=== PATIENT | male | born 1940 | race Caucasian/White ===

== ENCOUNTER 2017-03-07 09:49 | Inpatient (IN) | payer MEDICARE, OTHER ==
[~2017-03-07] VITALS: Ht 167.6 cm; Wt 82.4 kg
[2017-03-07] MEDS ORDERED: DIPHTH/TETANUS/ACEL PERTUSSIS (BOOSTER) 0.5 ML VIAL/PFS IM ONE (09:57)
[2017-03-07] MEDS ORDERED: MORPHINE SULFATE 8 MG/ML INJ ONE (09:57)
[2017-03-07] MEDS ORDERED: ceFAZolin 2 GM PREMIX 50 ML ONE (09:57)
[2017-03-07] MEDS ORDERED: ONDANSETRON HCL 4 MG/2 ML VIAL ONE (09:57)
[2017-03-07] MEDS ORDERED: GENTAMICIN 80 MG PREMIX 100 ML ONE (09:57)
[2017-03-07 10:06] VITALS: O2SAT 100
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
[2017-03-07 10:17] LABS: I-STAT POTASSIUM 4.5 MMOL/L (3.5-4.9)
[2017-03-07 10:19] LABS: AUTOMATED NEUTROPHIL # 4.9 TH/MM3 (1.8-7.7); BASOPHIL % 0.3 % (0.0-2.0); EOSINOPHIL # 0.1 TH/MM3 (0-0.4); EOSINOPHIL % 1.6 % (0.0-4.0); HEMATOCRIT 54.5 % (39.0-51.0); HEMO FLAGS DIFF FINAL; LYMPH % 27.3 % (9.0-44.0); LYMPHOCYTE # 2.1 TH/MM3 (1.0-4.8); MEAN CELL VOLUME 88.1 FL (80.0-100.0); MEAN CORPUSCULAR HEMOGLOBIN 29.6 PG (27.0-34.0); MEAN CORPUSCULAR HGB CONC 33.6 % (32.0-36.0); MONO % 7.4 % (0.0-8.0); NEUT % 63.4 % (16.0-70.0); PLATELET COUNT 156 TH/MM3 (150-450); RED BLOOD COUNT 6.18 MIL/MM3 (4.50-5.90); RED CELL DISTRIBUTION WIDTH 14.1 % (11.6-17.2); WHITE BLOOD COUNT 7.7 TH/MM3 (4.0-11.0)
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
[2017-03-07] MEDS ORDERED: diphenhydrAMINE HCL 50 MG/ML VIAL ONE (10:25)
[2017-03-07 10:26] LABS: APTT (PATIENT) 25.2 SEC (24.3-30.1); PROTHROMBIN TIME - PATIENT 11.4 SEC (9.8-11.6)
[2017-03-07 10:30] VITALS: BP 189/84; PULSE 78; RESP 22; O2SAT 100
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
[2017-03-07] MEDS ORDERED: LACTATED RINGER'S 1000 ML INJ 1,000 ML IV SCH (10:46)
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
[2017-03-07] MEDS ORDERED: ceFAZolin 2 GM PREMIX 50 ML IV STA (10:50)
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
[2017-03-07] MEDS ORDERED: ONDANSETRON HCL 4 MG/2 ML VIAL IV ONE (11:00)
[2017-03-07] MEDS ORDERED: HYDROmorphone HCL PF 1 MG/ML VIAL IVP PRN (11:00)
[2017-03-07] MEDS ORDERED: ONDANSETRON HCL 4 MG/2 ML VIAL IV PRN (11:00)
[2017-03-07] MEDS ORDERED: CHLORHEXIDINE GLUCONATE 2 % 1 PACK (2 CLOTHS) TOP PRN (11:00)
[2017-03-07] MEDS ORDERED: MORPHINE SULFATE 4 MG/ML INJ IV ONE (11:00)
[2017-03-07] MEDS ORDERED: MISCELLANEOUS NURSING INFORMATION XX SCH (11:00)
[2017-03-07] MEDS ORDERED: SODIUM CHLORIDE 0.9% FLUSH 10 ML FLUSH IV FLUSH PRN ×2 (11:00→21:00)
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
[2017-03-07 11:30] VITALS: BP 162/74; PULSE 68; RESP 22; O2SAT 100
[2017-03-07] MEDS ORDERED: IOHEXOL 350 MG/ML 10 ML VIAL (for RAD DIAG) IV ONE (11:33)
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
[2017-03-07 12:30] VITALS: BP 152/73; PULSE 66; RESP 22; O2SAT 100
[2017-03-07] MEDS: HYDROmorphone HCL PF 1 MG/ML VIAL IVP PRN ×2 (12:45→22:26)
[2017-03-07] MEDS ORDERED: NEOSTIGMINE 3 MG/3 ML SYR IV ONE (13:20)
[2017-03-07] MEDS ORDERED: PHENYLEPH/NS 1000 MCG/10 ML SYR IV ONE (13:20)
[2017-03-07] MEDS ORDERED: ONDANSETRON HCL 4 MG/2 ML VIAL IV PUSH ONE (13:20)
[2017-03-07] MEDS ORDERED: LACTATED RINGER'S 1000 ML INJ 1,000 ML IV ONE (13:20)
[2017-03-07] MEDS ORDERED: PROPOFOL 200 MG/20 ML AMP IV ONE (13:20)
[2017-03-07 13:30] VITALS: BP 126/60; PULSE 58; RESP 22; O2SAT 100
[2017-03-07] MEDS ORDERED: FLUT50SP EACH NARE (14:38)
[2017-03-07] MEDS ORDERED: ALAW0.02 EACH EYE (14:38)
[2017-03-07] MEDS ORDERED: SILD20TA11 PO (14:38)
[2017-03-07] MEDS ORDERED: TRAZ50TA12 PO (14:38)
[2017-03-07] MEDS ORDERED: AMLO2.5T PO (14:38)
[2017-03-07] MEDS ORDERED: CARB1SOL EACH EYE (14:38)
[2017-03-07] MEDS ORDERED: LISI40TA PO (14:38)
[2017-03-07] MEDS ORDERED: CITA40TA4 PO (14:38)
[2017-03-07] MEDS ORDERED: ASPI81CH CHEW (14:38)
[2017-03-07 16:00] VITALS: BP 122/66; PULSE 56; RESP 21; TEMP 98.1; O2SAT 94
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
[2017-03-07] MEDS ORDERED: POVIDONE IODINE 5% (ANTISEPSIS KIT) 4 APPLICATIONS EACH NARE PRN (18:45)
[2017-03-07] MEDS ORDERED: LACTATED RINGER'S 1000 ML IV PRN (18:45)
[2017-03-07] MEDS ORDERED: INSULIN HUMAN REGULAR 1,000 UNITS/10 ML VIAL SQ PRN (18:45)
[2017-03-07] MEDS ORDERED: SODIUM CHLORID 0.9% 500 ML IV PRN (18:45)
[2017-03-07] MEDS ORDERED: CHLORHEXIDINE GLUCONATE 2 % 1 PACK (2 CLOTHS) TOPICAL PRN (18:45)
[2017-03-07] MEDS ORDERED: METOPROLOL TARTRATE 25 MG TAB PO PRN (18:45)
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
[2017-03-07] MEDS ORDERED: GENTAMICIN SULFATE 80 MG/2 ML VIAL ONE (19:46)
[2017-03-07] MEDS ORDERED: GENTAMICIN SULFATE 80 MG/2 ML VIAL IV ONE (19:48)
[2017-03-07] MEDS ORDERED: GENTAMICIN SULFATE 80 MG/2 ML VIAL IRRIGATION ONE ×2 (19:49→20:10)
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
[2017-03-07] MEDS ORDERED: TEMAZEPAM 15 MG CAP PO PRN (21:00)
[2017-03-07] MEDS ORDERED: MORPHINE SULFATE 8 MG/ML INJ IV PUSH PRN (21:00)
[2017-03-07] MEDS ORDERED: FAMOTIDINE 20 MG TAB PO SCH (21:00)
[2017-03-07] MEDS ORDERED: ONDANSETRON HCL 4 MG/2 ML VIAL IVP PRN (21:00)
[2017-03-07] MEDS ORDERED: MAGNESIUM HYDROXIDE SUSP 30 ML CUP PO SCH (21:00)
[2017-03-07] MEDS ORDERED: BISACODYL 10 MG SUPP RECTAL PRN (21:00)
[2017-03-07] MEDS ORDERED: ACETAMINOPHEN 325 MG TAB PO PRN (21:00)
[2017-03-07] MEDS ORDERED: Post-op Orders (for Pharmacy) MISC XX ONE (21:00)
[2017-03-07] MEDS ORDERED: POVIDONE IODINE 10% SOLN 118 ML BOTTLE TOPICAL PRN (21:00)
[2017-03-07] MEDS: SODIUM CHLORIDE 0.9% FLUSH 10 ML FLUSH IV FLUSH SCH (21:00)
[2017-03-07] MEDS ORDERED: DOCUSATE SODIUM 100 MG/10 ML UDC PO SCH (21:00)
[2017-03-07] MEDS ORDERED: oxyCODONE/ACETAMINOPHEN 5 MG/325 MG TAB PO PRN (21:00)
[2017-03-07] MEDS: LACTATED RINGER'S 1000 ML INJ 1,000 ML IV SCH (21:00)
[2017-03-07] MEDS ORDERED: fentaNYL CITRATE 250 MCG/5 ML AMP ONE ×2 (21:06)
[2017-03-07] MEDS ORDERED: MORPHINE SULFATE 4 MG/ML INJ IV PUSH PRN (21:15)
[2017-03-07] MEDS ORDERED: MORPHINE SULFATE 4 MG/ML INJ ONE (21:18)
[2017-03-08] VITALS (8 sets, daily range): BP systolic 112–175; BP diastolic 65–87; PULSE 62–78; RESP 16–18; TEMP 97.5–99.3; O2SAT 85–97
[2017-03-08] MEDS ORDERED: CHLORHEXIDINE GLUCONATE 2 % 1 PACK (2 CLOTHS) TOP SCH (04:00)
[2017-03-08 05:34] LABS: AUTOMATED NEUTROPHIL # 10.4 TH/MM3 (1.8-7.7); BASOPHIL % 0.2 % (0.0-2.0); HEMATOCRIT 50.2 % (39.0-51.0); HEMO FLAGS DIFF FINAL; LYMPH % 9.5 % (9.0-44.0); LYMPHOCYTE # 1.3 TH/MM3 (1.0-4.8); MEAN CELL VOLUME 88.3 FL (80.0-100.0); MEAN CORPUSCULAR HEMOGLOBIN 29.1 PG (27.0-34.0); MEAN CORPUSCULAR HGB CONC 32.9 % (32.0-36.0); MONO % 12.5 % (0.0-8.0); NEUT % 77.8 % (16.0-70.0); PLATELET COUNT 146 TH/MM3 (150-450); RED BLOOD COUNT 5.69 MIL/MM3 (4.50-5.90); RED CELL DISTRIBUTION WIDTH 13.9 % (11.6-17.2); WHITE BLOOD COUNT 13.3 TH/MM3 (4.0-11.0)
[2017-03-08 05:54] LABS: BICARBONATE 26.3 MEQ/L (21.0-32.0); POTASSIUM 4.5 MEQ/L (3.5-5.1)
[2017-03-08] MEDS ORDERED: PILL SPLITTER OTHER PRN (07:15)
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
[2017-03-08] MEDS: amLODIPine BESYLATE 5 MG TAB PO SCH (08:40)
[2017-03-08] MEDS: FAMOTIDINE 20 MG TAB PO SCH ×2 (08:40→20:37)
[2017-03-08] MEDS: oxyCODONE/ACETAMINOPHEN 5 MG/325 MG TAB PO PRN ×4 (08:42→17:36)
[2017-03-08] MEDS: LISINOPRIL 20 MG TAB PO SCH (08:42)
[2017-03-08] MEDS: ASPIRIN 81 MG CHEW TAB CHEW SCH (08:44)
[2017-03-08] MEDS: CITALOPRAM HYDROBROMIDE 40 MG TAB PO SCH (08:44)
[2017-03-08] MEDS: ENOXAPARIN SODIUM 40 MG/0.4 ML SYRINGE SQ SCH (08:45)
[2017-03-08] MEDS: MAGNESIUM HYDROXIDE SUSP 30 ML CUP PO PRN (08:45)
[2017-03-08] MEDS: SODIUM CHLORIDE 0.9% FLUSH 10 ML FLUSH IV FLUSH SCH ×2 (08:47→21:00)
[2017-03-08] MEDS: LACTATED RINGER'S 1000 ML INJ 1,000 ML IV SCH ×2 (08:49→21:52)
[2017-03-08] MEDS: CARBOXYMETHYLCELL SOD 0.5% OPTH SOLN 15 ML BTL EACH EYE SCH ×2 (08:49→20:41)
[2017-03-08] MEDS ORDERED: [UNRECOGNIZED DRUG - OTHER] EACH EYE SCH (09:00)
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
[2017-03-08] MEDS ORDERED: MILKSUS PO (14:07)
[2017-03-08] MEDS ORDERED: DOCU1CAP39 PO (14:07)
[2017-03-08] MEDS ORDERED: WALKER WHEELS/F1 MIS (14:08)
--- NOTE | 2017-03-08 14:14 | EKG ---
Date Performed: 03/07/2017 Time Performed: 18:29:19 PTAGE: 89 years EKG: Sinus rhythm MARKED LEFT AXIS DEVIATION LEFT BUNDLE BRANCH BLOCK ABNORMAL ECG NO PREVIOUS TRACING DOCTOR: Johnny Shannon Interpretating Date/Time 03/08/2017 14:12:45
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
[2017-03-08] MEDS: DOCUSATE SODIUM 100 MG CAP PO SCH (20:36)
[2017-03-08] MEDS: GENTAMICIN 80 MG PREMIX 100 ML IV SCH ×2 (20:41→22:13)
[2017-03-08] MEDS ORDERED: traZODone HCL 50 MG TAB PO SCH (21:00)
[2017-03-09 00:05] VITALS: BP 150/73; PULSE 69; RESP 17; TEMP 99.8; O2SAT 94
[2017-03-09] MEDS: oxyCODONE/ACETAMINOPHEN 5 MG/325 MG TAB PO PRN ×3 (00:18→11:36)
[2017-03-09] MEDS: GENTAMICIN 80 MG PREMIX 100 ML IV SCH ×2 (05:44→12:43)
[2017-03-09] MEDS: LACTATED RINGER'S 1000 ML INJ 1,000 ML IV SCH (07:10)
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
[2017-03-09] MEDS: DOCUSATE SODIUM 100 MG CAP PO SCH (07:59)
[2017-03-09] MEDS: ASPIRIN 81 MG CHEW TAB CHEW SCH (07:59)
[2017-03-09] MEDS: FAMOTIDINE 20 MG TAB PO SCH (07:59)
[2017-03-09] MEDS: amLODIPine BESYLATE 5 MG TAB PO SCH (07:59)
[2017-03-09] MEDS: ENOXAPARIN SODIUM 40 MG/0.4 ML SYRINGE SQ SCH (07:59)
[2017-03-09] MEDS: MAGNESIUM HYDROXIDE SUSP 30 ML CUP PO PRN (07:59)
[2017-03-09] MEDS: CITALOPRAM HYDROBROMIDE 40 MG TAB PO SCH (07:59)
[2017-03-09 08:00] VITALS: BP 136/72; PULSE 67; RESP 16; TEMP 97; O2SAT 94
[2017-03-09] MEDS: CARBOXYMETHYLCELL SOD 0.5% OPTH SOLN 15 ML BTL EACH EYE SCH (08:00)
[2017-03-09] MEDS: SODIUM CHLORIDE 0.9% FLUSH 10 ML FLUSH IV FLUSH SCH (08:00)
[2017-03-09] MEDS: LISINOPRIL 20 MG TAB PO SCH (08:00)
[2017-03-09 11:38] VITALS: BP 137/75; PULSE 74; RESP 18; TEMP 98.2; O2SAT 96
[2017-03-09] MEDS ORDERED: OXYC1TAB63 PO (11:41)
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
== END 2017-03-09 15:37 | disposition home health service (06) | DRG 489 ==
LOC: NEPI 09:49 → NEDA 11:12 → EDBD 11:12 → N06A 14:36
PROVIDERS: ADMIT Surgery Trauma Surgery; ATTEND Surgery Trauma Surgery
PROC: 0S9D0ZZ Drainage of Left Knee Joint, Open Approach (ICD-10-PCS; 2017-03-07)
PROC: 0HQRXZZ Repair Toe Nail, External Approach (ICD-10-PCS; 2017-03-07)
PROC: 0JQP0ZZ Repair Left Lower Leg Subcutaneous Tissue and Fascia, Open Approach (ICD-10-PCS; 2017-03-07)
PROC: 0HQEXZZ Repair Left Lower Arm Skin, External Approach (ICD-10-PCS; 2017-03-07)
PROC: 0LQM0ZZ Repair Left Upper Leg Tendon, Open Approach (ICD-10-PCS; principal; 2017-03-07 19:01)
PROC: 0SBD0ZZ Excision of Left Knee Joint, Open Approach (ICD-10-PCS; 2017-03-07 19:01)
DX: S76.122A Laceration of left quadriceps muscle, fascia and tendon, initial encounter (principal); I10 Essential (primary) hypertension; S06.0X0A Concussion without loss of consciousness, initial encounter; S92.352A Displaced fracture of fifth metatarsal bone, left foot, initial encounter for closed fracture; S51.012A Laceration without foreign body of left elbow, initial encounter; S81.012A Laceration without foreign body, left knee, initial encounter; S90.32XA Contusion of left foot, initial encounter; S91.212A Laceration without foreign body of left great toe with damage to nail, initial encounter; S83.92XA Sprain of unspecified site of left knee, initial encounter; V23.4XXA Motorcycle driver injured in collision with car, pick-up truck or van in traffic accident, initial encounter; Y92.410 Unspecified street and highway as the place of occurrence of the external cause; Z88.5 Allergy status to narcotic agent
CPT/HCPCS: 29505; 70450; 70486; 71010; 71260; 72125; 72128; 72131; 72170; 73070; 73551; 73560; 73620; 73700; 74177; 80048; 82435; 82565; 82947; 82948; 84132; 84295; 84520; 85025; 85610; 85730; 86850; 86900; 86901; 90471; 90715; 93005; 94150; 96374; 96375; 99291; G0390; J0690; J1170; J1200; J1580; J1650; J2270; J2370; J2405; J2710; J3010; J7120; L1830; L2114; Q9967

== ENCOUNTER 2017-04-07 14:22 | Emergency (ER) | payer MEDICARE, OTHER ==
[~2017-04-07 14:22] MED LIST: ALAW0.02 EACH EYE; AMLO2.5T PO; ASPI81CH CHEW; CARB1SOL EACH EYE; CITA40TA4 PO; DOCU1CAP39 PO; FLUT50SP EACH NARE; LISI40TA PO; MILKSUS PO; OXYC1TAB63 PO; SILD20TA11 PO; TRAZ50TA12 PO; WALKER WHEELS/F1 MIS
[2017-04-07 14:27] VITALS: BP 164/87; PULSE 61; RESP 20; TEMP 98.2; O2SAT 97
[2017-04-07] MEDS ORDERED: CLINDAMYCIN 150 MG CAP PO ONE (15:00)
[2017-04-07] MEDS ORDERED: CLIN1CAP5 PO (15:03)
--- NOTE | 2017-04-07 15:04 | PD ---
HPI Chief Complaint: Musculoskeletal Complaint Time Seen by Provider: 14:38 Travel History International Travel<30 days: No Contact w/Intl Traveler<30days: No Traveled to known affect area: No History of Present Illness HPI About one month ago the patient had a laceration to the left thigh requiring operative repair by orthopedic surgery. Exploration irrigation debridement of left open knee wound with quadricep tendon repair for complex laceration was performed. Surgeon was Dr. Nugent. The patient has been doing well until 2 days ago when he noticed minimal purulent discharge collecting overlying the region of the patella. He's had no fever. He denies trauma. There is no significant tenderness in the area. He called the office and was advised to come to the ER. He has an appointment in 4 days. PFSH Past Medical History Arthritis: Yes (BL KNEE REPLACEMENTS) Cancer: No Cardiovascular Problems: Yes Diabetes: Yes Patient Takes Glucophage: No Endocrine: Yes Genitourinary: No Hypertension: Yes Immune Disorder: No Implanted Vascular Access Dvce: Yes Musculoskeletal: Yes Psychiatric: Yes (PTSD) Respiratory: No Tetanus Vaccination: < 5 Years Influenza Vaccination: Yes Past Surgical History Joint Replacement: Yes (BL KNEE) Social History Alcohol Use: No Tobacco Use: No Substance Use: No Allergies-Medications (Allergen,Severity, Reaction): Coded Allergies: Demerol (Verified Adverse Reaction, Severe, 04/07/17) n/v Reported Meds & Prescriptions Reported Meds & Active Scripts Active Clindamycin (Clindamycin HCl) 150 Mg Cap 450 Mg PO Q8HR 10 Days Reported Goodsense Lubricating Plus Opth Drops (Carboxymethylcellulose Sodium Opth Drops ) 0.5% Soln 1 Drop EACH EYE BID [place] Opth Drops (Ketotifen Opth Drops) 0.025% Drops 1 Drop EACH EYE BID Lisinopril 40 Mg Tab 40 Mg PO DAILY Aspirin 81 Mg Chew 81 Mg CHEW DAILY Fluticasone Nasal [place] 50 Mcg/Act Naspr 100 Mcg EACH NARE PRN 50 mcg/spray Amlodipine (Amlodipine Besylate) 2.5 Mg Tab 2.5 Mg PO DAILY Citalopram (Citalopram Hydrobromide) 40 Mg Tab 40 Mg PO DAILY Trazodone (Trazodone HCl) 50 Mg Tab 75 Mg PO HS Sildenafil 20 Mg Tab 100 Mg PO Review of Systems Except as stated in HPI: all other systems reviewed are Neg Skin: Positive Lesions Physical Exam Narrative GENERAL: 76-year-old male well-nourished well-developed SKIN: Focused skin assessment warm/dry. Overlying the left leg there is a very long healing surgical incision. In the region overlying the superior aspect of the patella there is trace brown and white bloody discharge. There is no significant tenderness about the surgical wound at the site of discharge or elsewhere. HEAD: Atraumatic. Normocephalic. EYES: Pupils equal and round. No scleral icterus. No injection or drainage. ENT: No nasal bleeding or discharge. Mucous membranes pink and moist. NECK: Trachea midline. No JVD. CARDIOVASCULAR: Regular rate and rhythm. No murmur appreciated. RESPIRATORY: No accessory muscle use. Clear to auscultation. Breath sounds equal bilaterally. GASTROINTESTINAL: Abdomen soft, non-tender, nondistended. Hepatic and splenic margins not palpable. MUSCULOSKELETAL: No obvious deformities. No clubbing. No cyanosis. No edema. NEUROLOGICAL: Awake and alert. No obvious cranial nerve deficits. Motor grossly within normal limits. Normal speech. PSYCHIATRIC: Appropriate mood and affect; insight and judgment normal. Data Data Last Documented VS Vital Signs Date Time Temp Pulse Resp B/P Pulse Ox O2 Delivery O2 Flow Rate FiO2 04/07/17 16:06 88 18 128/78 97 04/07/17 14:27 98.2 VS reviewed Orders Clindamycin (Cleocin) (04/07/17 15:00) Wound Culture And Gram Stain (04/07/17 15:08) MDM Medical Decision Making Medical Screen Exam Complete: Yes Emergency Medical Condition: Yes Medical Record Reviewed: Yes Differential Diagnosis cellulitis, abscess, wound dehiscence Narrative Course Case d/w Dr Nugent for ortho. We'll start with Clindamycin. Pt to follow up with Dr Nugent as scheduled. Return precautions discussed. Diagnosis Primary Impression: Discharge from wound Referrals: Johnny Nugent MD Follow up on if possible. Additional Instructions: You have a choice when it comes to health care, and we are glad that you chose [facility]. Hopefully, we have met your expectations on today's visit. You are welcome to return to [facility] at any time, as we are committed to meeting the health care needs of our community. Med/Other Pt SpecificInfo: Prescription(s) given Scripts Clindamycin 150 Mg [id number] Mg PO Q8HR 10 Days Ref 0 Prov:Marvin Garcia MD 04/07/17 Disposition: 01 DISCHARGE HOME Condition: Stable Marvin Garcia MD April 07, 2017 15:04
[2017-04-07 16:06] VITALS: BP 128/78
== END 2017-04-07 16:16 | disposition home or self-care (01) ==
LOC: PHED 14:22
DX: T81.89XA Other complications of procedures, not elsewhere classified, initial encounter (principal); M19.90 Unspecified osteoarthritis, unspecified site; E11.9 Type 2 diabetes mellitus without complications; I10 Essential (primary) hypertension; F43.10 Post-traumatic stress disorder, unspecified; Y83.8 Other surgical procedures as the cause of abnormal reaction of the patient, or of later complication, without mention of misadventure at the time of the procedure; Z88.5 Allergy status to narcotic agent; Z79.899 Other long term (current) drug therapy; Z79.82 Long term (current) use of aspirin
CPT/HCPCS: 87070; 87205; 99283